=== PATIENT | male | born 1955 | race Caucasian/White ===

== ENCOUNTER 2021-04-27 19:06 | Day surgery (SDCO) | payer OTHER ==
[~2021-04-27] VITALS: Ht 182.9 cm; Wt 100.7 kg
[~2021-04-27 19:06] MED LIST: CYMBALTA60 MG PO; DULOXETINE HCL30 MG PO; MOBIC15 MG PO; NEURONTIN300 MG PO; NORCO 5-325 TA1 EAC1 PO; NORCO 5-325 TA1 EACH PO; NORCO 5/3251 EACH PO
[2021-04-27 20:21] LABS: BASOPHIL 0.3 % (0-2); EOSINOPHIL 0.1 % (0-5); HCT 41.5 % (42.0-52.0); LYMPHOCYTE 15.9 % (15-48); MCH 32.7 pg (25.0-31.0); MCHC 33.7 g/dL (32.0-36.0); MONOCYTE 10.1 % (0-12); MPV 9.6 fL (6.0-9.5); NEUTROPHIL 73.3 % (41-80); NRBC 0; PLT 283 K/uL (150-400); RBC 4.28 M/uL (4.70-6.00); WBC 11.2 K/uL (4.0-10.5)
[2021-04-27 20:30] LABS: ALBUMIN 3.9 g/dL (3.4-5.0); BILIRUBIN - TOTAL 1.1 mg/dL (0.2-1.0); BUN/CREAT RATIO (CALC) 16.1 RATIO; CREATININE 1.92 mg/dL (0.67-1.17); GLOBULIN (CALCULATION) 3.5 g/dL; POTASSIUM 4.4 mmol/L (3.5-5.1); TOTAL PROTEIN 7.4 g/dL (6.4-8.2)
[2021-04-27] MEDS ORDERED: COZAAR100 MG PO (23:01)
[2021-04-27 23:26] LABS: BILIRUBIN 1+ mg/dL (NEGATIVE); BLOOD NEGATIVE Ery/uL (NEGATIVE); CLARITY CLEAR (CLEAR); COLOR YELLOW (YELLOW); GLUCOSE (U) NORMAL (NORMAL); LEUKOCYTES NEGATIVE Leu/uL (NEGATIVE); NITRITE NEGATIVE (NEGATIVE); PROTEIN TRACE (LOW) mg/dL (NEGATIVE); SPECIFIC GRAVITY >=1.030 (1.001-1.030); pH 5.5 (5.0-9.0)
[2021-04-27 23:32] LABS: BACTERIA 1+; MUCOUS TRACE
[2021-04-28 05:52] LABS: BASOPHIL 0.5 % (0-2); EOSINOPHIL 2.5 % (0-5); HCT 36.5 % (42.0-52.0); HGB 12.5 g/dl (13.2-18.0); LYMPHOCYTE 37.2 % (15-48); MCH 33.5 pg (25.0-31.0); MCHC 34.2 g/dL (32.0-36.0); MCV 97.9 fL (78.0-100.0); MONOCYTE 12.2 % (0-12); MPV 9.3 fL (6.0-9.5); NEUTROPHIL 47.4 % (41-80); NRBC 0; PLT 199 K/uL (150-400); RBC 3.73 M/uL (4.70-6.00); RDW 13.1 % (11.5-14.0); WBC 5.6 K/uL (4.0-10.5)
[2021-04-28 06:10] LABS: ALBUMIN 3.6 g/dL (3.4-5.0); BILIRUBIN - TOTAL 0.8 mg/dL (0.2-1.0); CREATININE 1.26 mg/dL (0.67-1.17); GLOBULIN (CALCULATION) 3.2 g/dL; POTASSIUM 3.9 mmol/L (3.5-5.1); TOTAL PROTEIN 6.8 g/dL (6.4-8.2)
--- NOTE | 2021-04-28 09:27 | NUR ---
EDUCATED PATIENT ON DISCHARGE INSTRUCTIONS, NO NEW MEDICATIONS AT DISCHARGE. ADVISED PATIENT TO DISCUSS RESUMING BLOOD PRESSURE MEDICATION AT PCP APPT TODAY. DISCUSSED HOW TO PREVENT DEHYDRATION, ENCOURAGED FLUIDS, REST AND AVOID OVERHEATING WHILE WORKING. PATIENT VOICED UNDERSTANDING
== END 2021-04-28 10:35 | disposition home or self-care (01) ==
LOC: FER 19:06 → FMS 21:58
PROVIDERS: Emergency Medicine; Nurse Practitioner; ADMIT Internal Medicine
DX: N17.9 Acute kidney failure, unspecified (principal); I10 Essential (primary) hypertension; G89.29 Other chronic pain; M54.9 Dorsalgia, unspecified; M25.519 Pain in unspecified shoulder; Z20.822 Contact with and (suspected) exposure to COVID-19
CPT/HCPCS: 36415; 80053; 81001; 82550; 83874; 85025; G0378; J3360; J7030; U0002